=== PATIENT | female | born 1970 | race Caucasian/White ===

== ENCOUNTER 2021-04-19 17:24 | Inpatient (IN) ==
[2021-04-19] MEDS ORDERED: 0.9 % SODIUM CHLORIDE 1,000 ML IV ONE (18:19)
[2021-04-19] MEDS ORDERED: METOCLOPRAMIDE 10 MG/2 ML VIAL IV ONE (18:19)
[2021-04-19 18:39] LABS: POC Calcium, Ionized 1.16 mmEq/L (1.16-1.32); POC Creatinine 0.7 mg/dL (0.6-1.2); POC Potassium 4.7 mEql/L (3.3-5.1)
[2021-04-19 19:16] LABS: Basophils # (Auto) 0 K/mcL (0.00-0.30); Basophils % (Auto) 0 % (0.0-2.0); Eosinophils # (Auto) 0 K/mcL (0.00-0.70); Eosinophils % (Auto) 0 % (0.0-7.0); Hematocrit 39.4 % (34.1-44.9); Hemoglobin 12.9 g/dL (11.2-15.7); Lymphocytes # (Auto) 0.97 K/mcL (1.50-4.80); Lymphocytes % (Auto) 29.6 % (15.5-49.0); Mean Cell Volume 91.8 fL (80.0-100.0); Mean Corpuscular HGB Conc 32.7 g/dL (31.0-36.0); Mean Platelet Volume 9.7 fL (7.4-10.4); Monocytes # (Auto) 0.26 K/mcL (0.10-0.90); Monocytes % (Auto) 7.9 % (1.0-12.0); Neutrophils % (Auto) 62.5 % (38.0-78.0); Platelet Count 219 K/mcL (140-440); RBC 4.29 M/mcL (3.59-5.38); Red Cell Distribution Width 13.5 % (11.5-14.5); WBC 3.3 K/mcL (4.5-11.0)
--- NOTE | 2021-04-19 19:20 | XRay Report ---
INDICATION: poss DKA, RLL rales, covid + TECHNIQUE: AP portable upright chest x-ray COMPARISON: Previous examination dated 08/30/2017 FINDINGS: Lungs:Mild left basilar pulmonary parenchymal infiltrate consistent with pneumonia. Clinical correlation and follow-up radiographs recommended Heart, vascular:No significant cardiomegaly. Pulmonary vascularity is normal. No pulmonary edema or pulmonary congestion Mediastinum, millie:No mediastinal widening. No hilar mass Pleura:No pleural fluid. No pleural-based mass or calcification Skeletal:Negative. IMPRESSION: Mild left basilar parenchymal infiltrate consistent with pneumonia Interpreted and Authenticated by: Ethan Wilson 04/19/21
[2021-04-19 19:38] LABS: ALT/SGPT 303 U/L (<40); AST/SGOT 57 U/L (<32); Albumin 4.3 gm/dL (3.2-5.2); Albumin/Globulin Ratio 1.2 (1.0-2.3); Alkaline Phosphatase 403 U/L (39-117); Bilirubin,Total < 0.2 mg/dL (0.1-1.0); Blood Urea Nitrogen 15 mg/dL (6-20); Calcium 8.9 mg/dL (8.6-10.4); Carbon Dioxide 10 mmol/L (22-30); Chloride 95 mmol/L (96-108); Globulin 3.5 gm/dL (2.2-3.7); Glomerular Filtration Rate 58; Glucose 370 mg/dL (70-105)
[2021-04-19] MEDS ORDERED: INSULIN REGULAR, HUMAN 50 UNIT in 0.9 % SODIUM CHLORIDE 99.5 ML IV SCH ×2 (19:45→23:05)
[2021-04-19] MEDS ORDERED: LACTATED RINGERS 1,000 ML IV ONE ×3 (19:48→23:05)
--- NOTE | 2021-04-19 19:49 | Emergency Department Note ---
HPI <Kiran Sorenson PA-C - Last Filed: 04/19/21 20:53> General Chief complaint: Blood Sugar Problem Stated complaint: Covid, possible DKA Time Seen by Provider: 04/19/21 17:45 Source: patient Mode of arrival: ambulatory Limitations: no limitations History of Present Illness HPI Narrative: Narrative: 51-year-old female presents emergency department with concerns of possible DKA, nausea, vomiting and body aches. She was diagnosed with COVID-19 and was doing okay but then about 4 or so days ago she started to get worsening nausea and vomiting and body aches. Her blood sugars were greater than 500. She uses an insulin pump. She denies chest pain, shortness of breath, abdominal pain, hemoptysis, hematemesis, black or bloody stools. Related Data Home Medications Medication Instructions Recorded Confirmed acyclovir 400 mg tablet 400 mg PO TID PRN tab 07/09/16 04/20/21 blood sugar diagnostic (OneTouch 07/09/16 12/17/20 Verio test strips) diclofenac sodium 75 mg 75 mg PO BID 07/09/16 04/20/21 tablet,delayed release fexofenadine [May Allergy] 180 mg PO QAM 07/09/16 04/20/21 hydrocodone 5 mg-acetaminophen 325 1 tab PO Q8H PRN 07/09/16 04/20/21 mg tablet infusion set for insulin pump 1 unit MISCELLANE QAM 07/09/16 04/20/21 [t:30 Infusion Set] insulin lispro 100 unit/mL See Rx Instructions .ROUTE 07/09/16 04/20/21 subcutaneous solution (Humalog .COMPLEX ml U-100 Insulin) lorazepam 0.5 mg tablet 0.5 mg PO BID PRN tab 07/09/16 04/20/21 metaxalone 800 mg tablet 800 mg PO QDAY PRN tab 07/09/16 04/20/21 pantoprazole 40 mg tablet,delayed 40 mg PO BID tab 07/09/16 04/20/21 release subcutaneous insulin pump (t:slim 07/09/16 12/17/20 Insulin Delivery System) ketamine 100 mg/10 mL (10 mg/mL) 100 mg IM WEEKLY 10/05/18 04/20/21 in sodium chlor,iso-osm inj syringe famotidine 20 mg tablet 20 mg PO QHS 09/14/20 11/14/21 duloxetine 30 mg capsule,delayed 30 mg PO QDAY 02/20/21 04/20/21 release Previous Rx's Medication Instructions Recorded albuterol sulfate 90 mcg/actuation 2 puff INHALATION Q4H PRN #6.7 g 01/16/21 aerosol inhaler Allergies Allergy/AdvReac Type Severity Reaction Status Date / Time mold Allergy Unknown Unknown Verified 04/20/21 01:48 prednisone AdvReac Severe DKA Verified 04/20/21 01:48 cardamine AdvReac Mild Unknown Uncoded 04/20/21 01:50 Review of Systems <Kiran Sorenson PA-C - Last Filed: 04/19/21 20:53> ROS ROS Narrative: Narrative: All systems ED: reviewed and negative except as stated. 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) Dizziness (Chronic) Muscle pain (Chronic) Shortness of breath (Chronic) Fever and chills (Chronic) Chest heaviness (Chronic) Plantar fasciitis, bilateral (Chronic) Throbbing pain (Chronic) Foot pain (Chronic) Head pain (Chronic) Gastroparesis (Chronic) Fibromyalgia (Chronic) Hyperlipidemia (Chronic) Hypertension (Chronic) Influenza B (Chronic) Diabetes (Chronic) Vulvovaginal gland abscess (Chronic) Acute viral syndrome (Chronic) Type I diabetes mellitus (Chronic) Nausea & vomiting (Chronic) Acute dehydration (Chronic) Chronic pain (Chronic) Encounter for long-term (current) use of high-risk medication (Chronic) Inflammatory arthropathy (Chronic) Hyperesthesia (Chronic) History of mammogram (Chronic 03/10/16) Back pain (Chronic) Dermatitis, contact (Chronic) Vaginal itching (Chronic) Migraine (Chronic) Paresthesias (Chronic) Epilepsy (Chronic) DIANA positive (Chronic) Pain in joint, multiple sites (Chronic) Shoulder pain, bilateral (Chronic) Enlarged glands (Chronic) Pelvic pain (Chronic) Dermatofibroma (Chronic) Lentigo (Chronic) Other benign neoplasm of skin of trunk (Chronic) Seborrheic keratosis (Chronic) Neoplasm of unspecified behavior of bone, soft tissue, and skin (Chronic) Nail anomaly (Chronic) Anxiety disorder (Chronic) Diabetic peripheral neuropathy (Chronic) Insomnia (Chronic) Unspecified contact dermatitis due to other chemical products (Chronic) High risk medication use (Chronic) Dry skin (Chronic) Right hip pain (Chronic) Right knee pain (Chronic) History of chronic back pain (Chronic) Dysphagia (Chronic) Diabetes mellitus type 1, uncontrolled (Chronic) Dermatitis (Chronic) GERD (gastroesophageal reflux disease) (Chronic) Acne vulgaris (Chronic) Cervicalgia (Chronic) Tension headache (Chronic) Seizure disorder (Chronic) Abnormal liver function tests (Chronic) Autonomic neuropathy (Chronic) Dysesthesia (Chronic) Arthralgia (Chronic) Diabetes mellitus type I (Chronic) Yeast infection (Chronic) UTI (urinary tract infection) (Chronic) Fatigue (Chronic) Abdominal pain (Chronic) Medical History Abdominal pain Abnormal liver function tests Acne vulgaris Acute dehydration Acute viral syndrome DIANA positive Anxiety disorder Arthralgia Autonomic neuropathy Back pain Cervicalgia Chest heaviness lungs Chronic pain Dermatitis scalp Dermatitis, contact Dermatofibroma Diabetes Diabetes mellitus type 1, uncontrolled Diabetes mellitus type I Diabetic peripheral neuropathy Dizziness Dry skin Dysesthesia Dysphagia Encounter for long-term (current) use of high-risk medication Enlarged glands Epilepsy Fatigue Fever and chills Fibromyalgia Foot pain Frequent headaches Gastroparesis GERD (gastroesophageal reflux disease) Grand mal seizure Head pain High risk medication use History of chronic back pain History of mammogram (03/10/16) Hyperesthesia Hyperlipidemia Hypertension Inflammatory arthropathy Influenza B Insomnia Lentigo Migraine Muscle pain Nail anomaly Nausea & vomiting Neoplasm of unspecified behavior of bone, soft tissue, and skin Other benign neoplasm of skin of trunk Pain in joint, multiple sites Paresthesias Pelvic pain Plantar fasciitis, bilateral Right hip pain Right knee pain Seborrheic keratosis Seizure disorder Shortness of breath Shoulder pain, bilateral Tension headache Throbbing pain w/stiffness Type I diabetes mellitus Unspecified contact dermatitis due to other chemical products UTI (urinary tract infection) Vaginal itching Vulvovaginal gland abscess Yeast infection Surgical History History of History of cholecystectomy History of hysterectomy for menorrhagia (still has ovaries) History of shoulder surgery bilateral History of surgery eyelid-upper eyelid lift, bilateral History of tonsillectomy History of tubal ligation Status post tendon repair Right elbow 2007 Family History Brother Renal disease Renal failure Family/Other Breast cancer Hypertension Heart disease Mother Arthritis Social History Smoking Status: Never smoker Alcohol Intake Frequency: a few times a month Substance Use: does not use Exam <Kiran Sorenson PA-C - Last Filed: 04/19/21 20:53> Narrative Narrative: Narrative: General Limitations: no limitations General appearance: Present in no apparent distress Head Head: Present atraumatic and normocephalic Eye Eye: Present EOMI ENT ENT: Present mucous membranes moist Respiratory Respiratory: Present other (Mild by basilar Rales) Cardiovascular Cardiovascular: Present normal rhythm, tachycardia and normal heart sounds Adbominal Abdominal: Present other (Abdomen is soft, nontender, no rebound tenderness no guarding.) Back Back: Present other (Negative CVA tenderness bilaterally.) Psychiatric Psychiatric: Present normal affect and normal mood Skin Skin: Present warm (WNL), dry and normal color Course <Kiran Sorenson PA-C - Last Filed: 04/19/21 20:53> Vital Signs Vital signs: Vital Signs Temperature 37.1 C 04/19/21 17:25 Pulse Rate 111 H 04/19/21 17:25 Respiratory Rate 16 04/19/21 17:25 Blood Pressure 151/133 04/19/21 17:25 Pulse Oximetry (%) 99 04/19/21 17:25 Temperature 36.6 C 04/20/21 00:02 Pulse Rate 97 H 04/20/21 00:02 Respiratory Rate 21 04/20/21 00:02 Blood Pressure 120/72 04/20/21 00:02 Pulse Oximetry (%) 99 04/20/21 00:02 MDM <Kiran Sorenson PA-C - Last Filed: 04/19/21 20:53> MDM Narrative Medical decision making narrative: Narrative: Labs reviewed and patient's 0.2 low bicarb beta hydroxybutyrate 7.89 ketones in urine. There is a small basilar infiltrate consistent with pneumonia. With a normal white count with no left shift so is most likely Covid pneumonia. Insulin drip started initially 1 L of normal saline ordered now another liter of lactated Ringer's. Critical care documentation: 30 minutes time spent interviewing and examining patient, ordering labs and imaging, reviewing and interpreting labs and imaging, reevaluating patient, determining treatment plan and Consulting specialist in the care of this patient. I spoke with the hospitalist who agreed to admit the patient to the ICU. This patient was seen in conjunction with the ER physician. Please see his addendum. Lab Data Result diagrams: 04/19/21 18:28 04/19/21 23:45 Labs: Lab Results 04/19/21 04/19/21 04/19/21 Range/Units 18:28 18:28 18:28 WBC 3.3 L (4.5-11.0) K/mcL RBC 4.29 (3.59-5.38) M/mcL Hgb 12.9 (11.2-15.7) g/dL Hct 39.4 (34.1-44.9) % POC Hct 43 (36-48) % MCV 91.8 (80.0-100.0) fL MCH 30.1 (26.0-34.0) pg MCHC 32.7 (31.0-36.0) g/dL RDW 13.5 (11.5-14.5) % Plt Count 219 (140-440) K/mcL MPV 9.7 (7.4-10.4) fL Neut % (Auto) 62.5 (38.0-78.0) % Lymph % (Auto) 29.6 (15.5-49.0) % [place] % (Auto) 7.9 (1.0-12.0) % Eos % (Auto) 0 (0.0-7.0) % Baso % (Auto) 0 (0.0-2.0) % Lymph # (Auto) 0.97 L (1.50-4.80) K/mcL [place] # (Auto) 0.26 (0.10-0.90) K/mcL Eos # (Auto) 0 (0.00-0.70) K/mcL Baso # (Auto) 0 (0.00-0.30) K/mcL Absolute Neutrophils 2.05 (1.80-8.00) K/mcL POC Sodium 134 (133-145) mEq/L Sodium 132 L (133-145) mmol/L POC Potassium 4.7 (3.3-5.1) mEql/L Potassium 4.8 (3.3-5.1) mmol/L POC Chloride 104 (96-108) mEq/L Chloride 95 L (96-108) mmol/L Carbon Dioxide 10 L* (22-30) mmol/L POC Total CO2 13 L (22-30) mmol/L Anion Gap 27.0 H (8.0-16.0) POC BUN 18 (6-20) mg/dL BUN 15 (6-20) mg/dL Creatinine 1.1 (0.6-1.1) mg/dL POC Creatinine 0.7 (0.6-1.2) mg/dL GFR Calculation 58 Glucose 370 H (70-105) mg/dL POC Glucose 376 H (70-105) mg/dL Calcium 8.9 (8.6-10.4) mg/dL POC WB Ioniz Calcium 1.16 (1.16-1.32) mmEq/L Total Bilirubin < 0.2 (0.1-1.0) mg/dL AST 57 H (<32) U/L ALT 303 H (<40) U/L Alkaline Phosphatase 403 H (39-117) U/L Total Protein 7.8 (5.9-8.4) gm/dL Albumin 4.3 (3.2-5.2) gm/dL Globulin 3.5 (2.2-3.7) gm/dL Albumin/Globulin Ratio 1.2 (1.0-2.3) Beta-Hydroxybutyrate 7.89 H (<0.27) mmol/L Discharge Plan Patient/Caregiver Discharge Instructions Pt seen by PIPING DESIGNER/PA only: No Clinical Impression: DKA, type 1, COVID-19 Patient Disposition: Xfer As Inpt ([facility]) Condition: Serious Discharge Date/Time: 04/19/21 22:35
[2021-04-19 19:52] LABS: Beta Hydroxybutyrate 7.89 mmol/L (<0.27)
[2021-04-19] MEDS ORDERED: LACTATED RINGERS 1,000 ML IV SCH (20:00)
--- NOTE | 2021-04-19 20:05 | Emergency Department Note ---
Course Vital Signs Vital signs: Vital Signs Temperature 37.1 C 04/19/21 17:25 Pulse Rate 111 H 04/19/21 17:25 Respiratory Rate 16 04/19/21 17:25 Blood Pressure 151/133 04/19/21 17:25 Pulse Oximetry (%) 99 04/19/21 17:25 Temperature 36.6 C 04/20/21 00:02 Pulse Rate 97 H 04/20/21 00:02 Respiratory Rate 21 04/20/21 00:02 Blood Pressure 120/72 04/20/21 00:02 Pulse Oximetry (%) 99 04/20/21 00:02 [facility] MDM Narrative Medical decision making narrative: Narrative: This was a patient who presented to the ED with known COVID-19 for about 1 week as well as dehydration nausea vomiting and she is a type I diabetic with history of DKA and she feels like she is starting to go into DKA. No chest pain no abdominal pain no urinary symptoms. Initially evaluated by KEN was given IV fluids, laboratory results are consistent with acute DKA, On my evaluation she is tachycardic with dry mucous membranes, otherwise nondistressed overall nontoxic, heart lungs are clear and regular abdomen soft nontender nondistended. She is hyperglycemic with a anion gap metabolic acidosis, her pH is 7.2, potassium is normal 4.7. Urinalysis shows ketones but no infection, chest x-ray shows possible lower lung pneumonia however I suspect this is most consistent with her known COVID-19, do not believe antibiotics indicated at this time. Was initially given a liter of NS, is given a further second liter LR and started on LR infusion as well as DKA protocol/insulin infusion. We are awaiting admission at this time to see whether she can be accepted here or if she will require transfer due to bed availability. And additionally from a COVID-19 standpoint fortunately she is not hypoxic whatsoever sats 98 to 100%, no indication for steroids, remdesivir at this time. 2100: Patient is accepted by the hospitalist here 2130: Repeat Accu-Chek around 200, will slow her insulin down to 5 units, will start her on D5 LR with KCl at 150 cc. Patient being transferred to the ICU at this time Critical Care Time Total CriticalCare time was at least 35 minutes, excluding separately reportable procedures. There was a high probability of clinically significant/life threatening deterioration in the patient's condition which required my urgent intervention. Lab Data Result diagrams: 04/19/21 18:28 04/19/21 23:45 Labs: Lab Results 04/19/21 04/19/21 04/19/21 Range/Units 18:28 18:28 18:28 WBC 3.3 L (4.5-11.0) K/mcL RBC 4.29 (3.59-5.38) M/mcL Hgb 12.9 (11.2-15.7) g/dL Hct 39.4 (34.1-44.9) % POC Hct 43 (36-48) % MCV 91.8 (80.0-100.0) fL MCH 30.1 (26.0-34.0) pg MCHC 32.7 (31.0-36.0) g/dL RDW 13.5 (11.5-14.5) % Plt Count 219 (140-440) K/mcL MPV 9.7 (7.4-10.4) fL Neut % (Auto) 62.5 (38.0-78.0) % Lymph % (Auto) 29.6 (15.5-49.0) % [place] % (Auto) 7.9 (1.0-12.0) % Eos % (Auto) 0 (0.0-7.0) % Baso % (Auto) 0 (0.0-2.0) % Lymph # (Auto) 0.97 L (1.50-4.80) K/mcL [place] # (Auto) 0.26 (0.10-0.90) K/mcL Eos # (Auto) 0 (0.00-0.70) K/mcL Baso # (Auto) 0 (0.00-0.30) K/mcL Absolute Neutrophils 2.05 (1.80-8.00) K/mcL POC Sodium 134 (133-145) mEq/L Sodium 132 L (133-145) mmol/L POC Potassium 4.7 (3.3-5.1) mEql/L Potassium 4.8 (3.3-5.1) mmol/L POC Chloride 104 (96-108) mEq/L Chloride 95 L (96-108) mmol/L Carbon Dioxide 10 L* (22-30) mmol/L POC Total CO2 13 L (22-30) mmol/L Anion Gap 27.0 H (8.0-16.0) POC BUN 18 (6-20) mg/dL BUN 15 (6-20) mg/dL Creatinine 1.1 (0.6-1.1) mg/dL POC Creatinine 0.7 (0.6-1.2) mg/dL GFR Calculation 58 Glucose 370 H (70-105) mg/dL POC Glucose 376 H (70-105) mg/dL Calcium 8.9 (8.6-10.4) mg/dL POC WB Ioniz Calcium 1.16 (1.16-1.32) mmEq/L Total Bilirubin < 0.2 (0.1-1.0) mg/dL AST 57 H (<32) U/L ALT 303 H (<40) U/L Alkaline Phosphatase 403 H (39-117) U/L Total Protein 7.8 (5.9-8.4) gm/dL Albumin 4.3 (3.2-5.2) gm/dL Globulin 3.5 (2.2-3.7) gm/dL Albumin/Globulin Ratio 1.2 (1.0-2.3) Beta-Hydroxybutyrate 7.89 H (<0.27) mmol/L Discharge Plan Patient/Caregiver Discharge Instructions Pt seen by COMPLIANCE REVIEW SPECIALIST/PA only: No Clinical Impression: DKA, type 1, COVID-19 Patient Disposition: Xfer As Inpt ([facility]) Condition: Serious Discharge Date/Time: 04/19/21 22:35
--- NOTE | 2021-04-19 21:31 | Internal Med History&Physical ---
HPI History of Present Illness Patient information: Note initiated : 04/19/21 at 9:22 pm Service Date, if different from initiated Date: [] Patient: Debby King 51 y/o F admitted on for Covid, possible DKA. Chief Complaint: [DKA] History of present illness: Ms. King is a 51 year old F history of seizure and type 1 diabetes mellitus, presenting with 3-day history of general body weakness, nausea, decreased oral intake, muscle and bone aches. 1 week ago she started to have symptoms of runny nose and mild shortness of breath. She self test herself for Covid pneumonia and she was tested +6 days ago. 3 days ago, she started to experience general body weakness, nausea, decreased oral intake, muscle and bone aches. She used an insulin pump with glucose monitor and in the past 3 days, her blood glucose levels was elevated from 300-500s. Due to her symptoms, he came to our ED for further evaluations this evening. Vital signs significant for tachycardia with heart rate up in the 110s. Labs significant for blood glucose of 370, serum bicarb of 10, and serum anion gap elevated to 27. As stated before, she was tested positive for Covid 6 days ago. Chest x-ray showing mild left basilar parenchymal infiltrate consistent with pneumonia. Constitutional Constitutional: Present fatigue and weakness; Absent chills, excessive sweating or fever(s) Additional comments: decreased oral intake EENT Eyes: Absent blurry vision, change in vision, loss of vision or other visual disturbances Ears: Absent decreased hearing or tinnitus Nose, mouth and throat: Absent abnormal hearing, dry mouth, headache(s), nasal congestion or sore throat Cardiovascular Cardiovascular: Absent chest pain, chest pain at rest, edema, irregular heart rhythm or palpatations Respiratory Respiratory: Absent cough, dyspnea or wheezing Gastrointestinal Gastrointestinal: Present nausea; Absent abdominal pain, constipation, diarrhea or vomiting Musculoskeletal Musculoskeletal: Present muscle cramps; Absent back pain, deformity, limited range of motion, muscle weakness or numbness Integumentary Integumentary: Absent lesions, rash or wounds Neurological Neurological: Absent focal weakness, headache(s) or numbness Psychiatric Psychiatric: Absent anxiety, depression or hallucinations Endocrine Endocrine: Present fatigue PFSH PFSH All Active Problems (Updated 04/19/21 @ 21:26 by Valentino Pardo MD) Asymptomatic COVID-19 virus infection (Acute) Viral URI with cough (Acute) DKA, type 1 (Acute) COVID-19 (Acute) Frequent headaches (Chronic) 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) Dizziness (Chronic) Muscle pain (Chronic) Shortness of breath (Chronic) Fever and chills (Chronic) Chest heaviness (Chronic) Plantar fasciitis, bilateral (Chronic) Throbbing pain (Chronic) Foot pain (Chronic) Head pain (Chronic) Gastroparesis (Chronic) Fibromyalgia (Chronic) Hyperlipidemia (Chronic) Hypertension (Chronic) Influenza B (Chronic) Diabetes (Chronic) Vulvovaginal gland abscess (Chronic) Acute viral syndrome (Chronic) Type I diabetes mellitus (Chronic) Nausea & vomiting (Chronic) Acute dehydration (Chronic) Chronic pain (Chronic) Encounter for long-term (current) use of high-risk medication (Chronic) Inflammatory arthropathy (Chronic) Hyperesthesia (Chronic) History of mammogram (Chronic 03/10/16) Back pain (Chronic) Dermatitis, contact (Chronic) Vaginal itching (Chronic) Migraine (Chronic) Paresthesias (Chronic) Epilepsy (Chronic) DIANA positive (Chronic) Pain in joint, multiple sites (Chronic) Shoulder pain, bilateral (Chronic) Enlarged glands (Chronic) Pelvic pain (Chronic) Dermatofibroma (Chronic) Lentigo (Chronic) Other benign neoplasm of skin of trunk (Chronic) Seborrheic keratosis (Chronic) Neoplasm of unspecified behavior of bone, soft tissue, and skin (Chronic) Nail anomaly (Chronic) Anxiety disorder (Chronic) Diabetic peripheral neuropathy (Chronic) Insomnia (Chronic) Unspecified contact dermatitis due to other chemical products (Chronic) High risk medication use (Chronic) Dry skin (Chronic) Right hip pain (Chronic) Right knee pain (Chronic) History of chronic back pain (Chronic) Dysphagia (Chronic) Diabetes mellitus type 1, uncontrolled (Chronic) Dermatitis (Chronic) GERD (gastroesophageal reflux disease) (Chronic) Acne vulgaris (Chronic) Cervicalgia (Chronic) Tension headache (Chronic) Seizure disorder (Chronic) Abnormal liver function tests (Chronic) Autonomic neuropathy (Chronic) Dysesthesia (Chronic) Arthralgia (Chronic) Diabetes mellitus type I (Chronic) Yeast infection (Chronic) UTI (urinary tract infection) (Chronic) Fatigue (Chronic) Abdominal pain (Chronic) Medical History Abdominal pain Abnormal liver function tests Acne vulgaris Acute dehydration Acute viral syndrome DIANA positive Anxiety disorder Arthralgia Autonomic neuropathy Back pain Cervicalgia Chest heaviness lungs Chronic pain Dermatitis scalp Dermatitis, contact Dermatofibroma Diabetes Diabetes mellitus type 1, uncontrolled Diabetes mellitus type I Diabetic peripheral neuropathy Dizziness Dry skin Dysesthesia Dysphagia Encounter for long-term (current) use of high-risk medication Enlarged glands Epilepsy Fatigue Fever and chills Fibromyalgia Foot pain Frequent headaches Gastroparesis GERD (gastroesophageal reflux disease) Grand mal seizure Head pain High risk medication use History of chronic back pain History of mammogram (03/10/16) Hyperesthesia Hyperlipidemia Hypertension Inflammatory arthropathy Influenza B Insomnia Lentigo Migraine Muscle pain Nail anomaly Nausea & vomiting Neoplasm of unspecified behavior of bone, soft tissue, and skin Other benign neoplasm of skin of trunk Pain in joint, multiple sites Paresthesias Pelvic pain Plantar fasciitis, bilateral Right hip pain Right knee pain Seborrheic keratosis Seizure disorder Shortness of breath Shoulder pain, bilateral Tension headache Throbbing pain w/stiffness Type I diabetes mellitus Unspecified contact dermatitis due to other chemical products UTI (urinary tract infection) Vaginal itching Vulvovaginal gland abscess Yeast infection Surgical History History of History of cholecystectomy History of hysterectomy for menorrhagia (still has ovaries) History of shoulder surgery bilateral History of surgery eyelid-upper eyelid lift, bilateral History of tonsillectomy History of tubal ligation Status post tendon repair Right elbow 2006 Family History Brother Renal disease Renal failure Family/Other Breast cancer Hypertension Heart disease Mother Arthritis Social History (Updated 12/06/20 @ 06:38 by Esmer Xinog) marital status: education level: high school occupational status: 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 smoking status: Never smoker alcohol intake frequency: a few times a month substance use type: does not use MEDS/ALLERGIES Home Medications and Allergies Home Medications Medication Instructions Recorded Confirmed Type acyclovir 400 mg tablet 400 mg PO TID PRN tab 07/09/16 02/20/21 History blood sugar diagnostic (OneTouch 07/09/16 12/17/20 History Verio test strips) diclofenac sodium 75 mg 75 mg PO BID 07/09/16 02/20/21 History tablet,delayed release fexofenadine [May Allergy] 180 mg PO BID 07/09/16 02/20/21 History hydrocodone 5 mg-acetaminophen 325 1 tab PO Q8H PRN 07/09/16 02/20/21 History mg tablet infusion set for insulin pump MISCELLANE 07/09/16 12/17/20 History [t:30 Infusion Set] insulin lispro 100 unit/mL See Rx Instructions CONTINUOUS 07/09/16 12/17/20 History subcutaneous solution (Humalog SUBCUTANEOUS INFUSION ml U-100 Insulin) lorazepam 0.5 mg tablet 0.25 mg PO BID PRN tab 07/09/16 02/20/21 History metaxalone 800 mg tablet 800 mg PO QDAY PRN tab 07/09/16 02/20/21 History pantoprazole 40 mg tablet,delayed 40 mg PO BID tab 07/09/16 02/20/21 History release subcutaneous insulin pump (t:slim 07/09/16 12/17/20 History Insulin Delivery System) ketamine 100 mg/10 mL (10 mg/mL) 100 mg IM WEEKLY 10/05/18 02/20/21 History in sodium chlor,iso-osm inj syringe famotidine 20 mg tablet 20 mg PO QDAY 02/19/20 02/20/21 History ondansetron HCl 4 mg tablet 4 mg PO Q8H PRN #30 tab 10/12/20 02/20/21 Rx (Zofran) albuterol sulfate 90 mcg/actuation 2 puff INHALATION Q4H PRN #6.7 g 01/16/21 02/20/21 Rx aerosol inhaler duloxetine 30 mg capsule,delayed 30 mg PO QDAY 02/20/21 02/20/21 History release Allergies Allergy/AdvReac Type Severity Reaction Status Date / Time mold Allergy Unknown Unknown Verified 04/19/21 17:25 prednisone AdvReac Severe DKA Verified 04/19/21 17:25 EXAM Constitutional Vitals: Temp Pulse Resp BP Pulse Ox 37.1 C 105 H 16 127/76 98 04/19/21 17:25 04/19/21 19:46 04/19/21 17:25 04/19/21 18:35 04/19/21 19:46 General appearance: cooperative, disheveled and mild distress Head Head exam: Present atraumatic and normocephalic Eye Eye exam: Present EOMI and PERRL ENT ENT exam: Present mucous membranes moist, normal exam and normal external ear exam Neck Neck exam: Present normal inspection; Absent lymphadenopathy, tenderness or thyromegaly Respiratory Respiratory exam: Absent accessory muscle use, respiratory distress or wheezes Cardiovascular Cardiovascular exam: Present tachycardia; Absent JVD GI/Abdominal GI/Abdominal exam: Present normal bowel sounds and soft; Absent organomegaly or tenderness Extremities Exam Extremities exam: Present full ROM, normal capillary refill and normal inspection; Absent tenderness Neurological Exam Neurological exam: Present alert, CN II-XII intact and oriented X3; Absent motor sensory deficit Psychiatric Psychiatric exam: Present normal affect and normal mood; Absent anxious or depressed Skin Skin exam: Present dry and intact DATA Data Completed and Pending Labs: Labs from last 24 hours 04/19/21 04/19/21 04/19/21 18:28 18:28 18:28 WBC 3.3 L RBC 4.29 Hgb 12.9 Hct 39.4 POC Hct 43 MCV 91.8 MCH 30.1 MCHC 32.7 RDW 13.5 Plt Count 219 MPV 9.7 Neut % (Auto) 62.5 Lymph % (Auto) 29.6 Davison % (Auto) 7.9 Eos % (Auto) 0 Baso % (Auto) 0 Lymph # (Auto) 0.97 L Davison # (Auto) 0.26 Eos # (Auto) 0 Baso # (Auto) 0 Absolute Neutrophils 2.05 POC Sodium 134 Sodium 132 L POC Potassium 4.7 Potassium 4.8 POC Chloride 104 Chloride 95 L Carbon Dioxide 10 L* POC Total CO2 13 L Anion Gap 27.0 H POC BUN 18 BUN 15 Creatinine 1.1 POC Creatinine 0.7 GFR Calculation 58 Glucose 370 H POC Glucose 376 H Calcium 8.9 POC WB Ioniz Calcium 1.16 Total Bilirubin < 0.2 AST 57 H ALT 303 H Alkaline Phosphatase 403 H Total Protein 7.8 Albumin 4.3 Globulin 3.5 Albumin/Globulin Ratio 1.2 Beta-Hydroxybutyrate 7.89 H A/P Assessment and plan (1) DKA, type 1: Status: Acute (2) Asymptomatic COVID-19 virus infection: Status: Acute (3) Epilepsy: Status: Chronic (4) GERD (gastroesophageal reflux disease): Status: Chronic Narrative A/P Narrative: Assessment and plan: 1. Type I DKA: Admit to inpatient ICU with telemetry Hemoglobin A1c N.p.o. Status post 1 L LR bolus given in the ED, to be followed by another liters of LR bolus IV fluid therapy as followin/2 saline with KCl 20 M EQ @250cc/hr to be given if anion gap is elevated (>14) and blood glucose >=200 D5 1/2 saline with KCl 20 M EQ @250cc/hr to be given if anion gap is elevated (>14) and blood glucose <200 Insulin drip according to DKA protocol Accu-Chek every 1 hour BMP every 6 hours to trend serum bicarb as well as anion gap When anion gap is closed meaning less than or equal to 14, metabolic acidosis resolved, then we can start transition of insulin therapy from insulin drip to subcutaneous insulin or in this case will be insulin pump We will disable the insulin pen while the patient is receiving insulin drip and will reactivate the insulin pump for 2 hours bridge before we stop the insulin drip and IV fluid When insulin drip and IV fluid are discontinued, we can then start feeding the 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 Zofran IV as needed nausea vomiting Reglan IV as needed nausea vomiting #2 asymptomatic Covid pneumonia: Patient is tolerating room air with oxygen saturation in the upper 90s, so no treatment for Covid such as remdesivir or dexamethasone is indicated at the moment Isolation protocol with airborne and contact isolation Continue to monitor for patient's oxygen saturations and would initiate Covid specific treatment when patient started to show signs and symptoms of Covid pneumonia #3 history of seizures: Continue Vimpat per home regimen #4 history of GERD: Continue oral PPI from home regimen GI prophylaxis: Continue oral PPI from home regimen DVT prophylaxis: Lovenox CODE STATUS: Full code Prognosis: Guarded Dispositions: Inpatient ICU Critical care time: 1 hour Time Spent With Patient Time: Total time spent is greater than 50% in coordination of care (as documented) at patient's floor/unit and/or counseling patient: Total time spent with greater than 50% in coordination of care (as documented) at patient's floor/unit and/or counseling patient:: Greater than 35 minutes
[2021-04-19] MEDS ORDERED: DEXTROSE 5%-LR W/20MEQ KCL 1,000 ML IV SCH (21:45)
[2021-04-19] MEDS ORDERED: METAXALONE 800 MG TABLET PO PRN (23:05)
[2021-04-19] MEDS ORDERED: LORazepam 2 MG/ML VIAL IV PRN (23:05)
[2021-04-19] MEDS ORDERED: IBUPROFEN 600 MG TABLET PO PRN (23:05)
[2021-04-19] MEDS ORDERED: IPRATROPIUM/ALBUTEROL 3 ML AMPUL.NEB NEB PRN (23:05)
[2021-04-19] MEDS ORDERED: ONDANSETRON 4 MG/2 ML VIAL IV PRN (23:05)
[2021-04-19] MEDS ORDERED: ACETAMINOPHEN 325 MG TABLET PO PRN (23:05)
[2021-04-19] MEDS ORDERED: LORazepam 0.5 MG TABLET PO PRN (23:05)
[2021-04-19] MEDS ORDERED: ALBUTEROL SULFATE 200 PUFF INHALER INH PRN (23:05)
[2021-04-19] MEDS ORDERED: DEXTROSE 5%-1/2NS 1,000 ML IV SCH (23:05)
[2021-04-19] MEDS: 0.45 % SODIUM CHLORIDE 1,000 ML IV SCH (23:22)
[2021-04-19] MEDS: DEXTROSE 5%-1/2NS W/20MEQ KCL 1,000 ML IV SCH (23:32)
[2021-04-19] MEDS: 0.9 % SODIUM CHLORIDE 10 ML SYRINGE IV SCH (23:32)
[2021-04-20 00:16] LABS: ABG Methemoglobin 0.3 % (0.4-1.5); Total Hemoglobin 11.2 gm/Dl (12.0-15.0); VBG Base Excess -6 (-2-2); VBG HCO3 19.2 mmol/L (24.0-28.0); VBG Oxygen Saturation 84.3 % (40.0-70.0); VBG PCO2 36.9 mmHg (41.0-51.0); VBG PH 7.34 U (7.32-7.42); VBG PO2 54.5 mmHg (25.0-40.0); VBG Total CO2 20.4 mmol/L (25.0-29.0)
[2021-04-20 00:26] LABS: Estimated Average Glucose(eAG) 301 mg/dL; Hemoglobin A1C 12.1 % Hgb (4.0-6.0)
[2021-04-20 00:31] LABS: Appearance,Urine CLEAR (Clear); Bilirubin,Urine Negative (Negative); Color,Urine STRAW; Culture Indicated,Urine No; Glucose,Urine (UA) >=500 mg/dL (Negative); Ketones,Urine 80 mg/dL (Negative); Leukocyte Esterase,Urine Negative /uL (Negative); Mucus,Urine FEW /hpf; Nitrate,Urine Negative (Negative); Protein,Urine Negative (Negative); Specific Gravity,Urine 1.017 (1.000-1.035); Urine Blood Negative (Negative); Urine RBC 0 /hpf (0-3); Urine Squamous Epithelial Cell < 1 /hpf (0-4); Urine WBC 0 /hpf (0-4); Urobilinogen,Urine Negative
[2021-04-20] MEDS: METOCLOPRAMIDE 10 MG/2 ML VIAL IV SCH ×3 (00:46→12:13)
[2021-04-20 00:48] LABS: Blood Urea Nitrogen 10 mg/dL (6-20); Calcium 8.2 mg/dL (8.6-10.4); Carbon Dioxide 17 mmol/L (22-30); Chloride 102 mmol/L (96-108); Glomerular Filtration Rate 86; Glucose 157 mg/dL (70-105)
[2021-04-20 00:49] LABS: ALT/SGPT 246 U/L (<40); AST/SGOT 46 U/L (<32); Albumin 3.7 gm/dL (3.2-5.2); Albumin/Globulin Ratio 1.2 (1.0-2.3); Alkaline Phosphatase 323 U/L (39-117); Bilirubin,Direct < 0.2 mg/dL (0-0.3); Bilirubin,Total < 0.2 mg/dL (0.1-1.0); Lactate Dehydrogenase 210 U/L (135-225); Phosphorous 2.2 mg/dL (2.5-4.5); Triglycerides 270 mg/dL (<150); Uric Acid 4.5 mg/dL (2.5-8.0)
[2021-04-20] MEDS ORDERED: METOCLOPRAMIDE 10 MG/2 ML VIAL ONE ×2 (00:50→07:25)
[2021-04-20] MEDS ORDERED: INSULIN REGULAR, HUMAN 1 UNIT/0.01 ML UNIT ONE (02:56)
[2021-04-20] MEDS: INSULIN REGULAR, HUMAN 50 UNIT in 0.9 % SODIUM CHLORIDE 99.5 ML IV SCH ×2 (03:00→03:12)
[2021-04-20] MEDS ORDERED: INSULIN REGULAR, HUMAN 50 UNIT in 0.9 % SODIUM CHLORIDE 99.5 ML IV SCH ×2 (03:15→15:00)
[2021-04-20 03:35] LABS: ABG Methemoglobin 0.3 % (0.4-1.5); Total Hemoglobin 10.4 gm/Dl (12.0-15.0); VBG Base Excess -2 (-2-2); VBG HCO3 22.1 mmol/L (24.0-28.0); VBG Oxygen Saturation 91.3 % (40.0-70.0); VBG PCO2 33.6 mmHg (41.0-51.0); VBG PH 7.44 U (7.32-7.42); VBG PO2 114.3 mmHg (25.0-40.0); VBG Total CO2 23.1 mmol/L (25.0-29.0)
[2021-04-20 03:50] LABS: Basophils # (Auto) 0 K/mcL (0.00-0.30); Basophils % (Auto) 0 % (0.0-2.0); Eosinophils # (Auto) 0 K/mcL (0.00-0.70); Eosinophils % (Auto) 0 % (0.0-7.0); Hematocrit 32.1 % (34.1-44.9); Hemoglobin 10.4 g/dL (11.2-15.7); Lymphocytes # (Auto) 1.79 K/mcL (1.50-4.80); Lymphocytes % (Auto) 49.2 % (15.5-49.0); Mean Cell Volume 91.5 fL (80.0-100.0); Mean Corpuscular HGB Conc 32.4 g/dL (31.0-36.0); Mean Platelet Volume 9.5 fL (7.4-10.4); Monocytes # (Auto) 0.43 K/mcL (0.10-0.90); Monocytes % (Auto) 11.8 % (1.0-12.0); Platelet Count 172 K/mcL (140-440); RBC 3.51 M/mcL (3.59-5.38); Red Cell Distribution Width 13.7 % (11.5-14.5); WBC 3.6 K/mcL (4.5-11.0)
[2021-04-20 03:59] LABS: ALT/SGPT 216 U/L (<40); AST/SGOT 40 U/L (<32); Albumin 3.4 gm/dL (3.2-5.2); Albumin/Globulin Ratio 1.3 (1.0-2.3); Alkaline Phosphatase 292 U/L (39-117); Bilirubin,Total < 0.2 mg/dL (0.1-1.0); Blood Urea Nitrogen 9 mg/dL (6-20); Calcium 7.8 mg/dL (8.6-10.4); Carbon Dioxide 19 mmol/L (22-30); Chloride 106 mmol/L (96-108); Globulin 2.6 gm/dL (2.2-3.7); Glomerular Filtration Rate 101; Glucose 187 mg/dL (70-105); Phosphorous 2.1 mg/dL (2.5-4.5)
[2021-04-20] MEDS: DEXTROSE 5%-1/2NS W/20MEQ KCL 1,000 ML IV SCH ×4 (04:09→11:57)
[2021-04-20] MEDS: 0.45 % SODIUM CHLORIDE 1,000 ML IV SCH ×3 (04:16→11:57)
[2021-04-20] MEDS: 0.9 % SODIUM CHLORIDE 10 ML SYRINGE IV SCH ×4 (06:13→21:52)
[2021-04-20] MEDS ORDERED: PANTOPRAZOLE 40 MG TABLET PO SCH (07:30)
[2021-04-20] MEDS ORDERED: HYDROcodone/APAP 5/325MG TABLET PO PRN ×2 (07:39→13:52)
[2021-04-20 07:43] LABS: ABG Methemoglobin 0.3 % (0.4-1.5); VBG Base Excess -2 (-2-2); VBG HCO3 23.3 mmol/L (24.0-28.0); VBG PCO2 42.8 mmHg (41.0-51.0); VBG PH 7.35 U (7.32-7.42); VBG PO2 22.8 mmHg (25.0-40.0); VBG Total CO2 24.6 mmol/L (25.0-29.0)
[2021-04-20] MEDS ORDERED: ALBUTEROL SULFATE 200 PUFF INHALER INH PRN ×2 (07:45→13:52)
[2021-04-20 08:00] LABS: Carbon Dioxide 22 mmol/L (22-30); Chloride 102 mmol/L (96-108)
[2021-04-20] MEDS ORDERED: FAMOTIDINE 20 MG TABLET PO SCH (09:00)
[2021-04-20] MEDS ORDERED: DULoxetine 30 MG CAPSULE PO SCH ×2 (09:00)
[2021-04-20] MEDS ORDERED: ENOXAPARIN 40 MG/0.4 ML SYRINGE SQ SCH (09:00)
[2021-04-20] MEDS ORDERED: Diclofenac Sodium 75 mg tablet,delayed release PO SCH (09:00)
[2021-04-20] MEDS ORDERED: LACOSAMIDE 10 MG/ML PO SCH ×2 (09:00→21:00)
[2021-04-20] MEDS ORDERED: FEXOFENADINE 180 MG TABLET PO SCH (09:00)
[2021-04-20] MEDS ORDERED: DOCUSATE SODIUM 100 MG CAPSULE PO SCH (09:00)
[2021-04-20] MEDS ORDERED: ALPRAZolam 0.5 MG TABLET PO SCH (09:00)
[2021-04-20] MEDS ORDERED: SENNOSIDES 8.8 MG/5 ML ML PT SCH (09:00)
[2021-04-20] MEDS ORDERED: ZONISAMIDE 100 MG PO SCH ×4 (09:00→21:00)
[2021-04-20] MEDS ORDERED: guaiFENesin/DEXTROMETHORPHAN ORAL SOL PO PRN ×2 (09:34→13:52)
--- NOTE | 2021-04-20 09:34 | Internal Med Progress Note ---
SUBJECTIVE Subjective Patient information: Note initiated : 04/20/21 at 9:33 am Service Date, if different from initiated Date: [] Patient: Debby King a 51 y/o F admitted on 04/19/21 for Covid, possible DKA. Chief Complaint: [DKA type 1] Interval history: History of present illness: Ms. King is a 51 year old F history of seizure and type 1 diabetes mellitus, presenting with 3-day history of general body weakness, nausea, decreased oral intake, muscle and bone aches. 1 week ago she started to have symptoms of runny nose and mild shortness of breath. She self test herself for Covid pneumonia and she was tested +6 days ago. 3 days ago, she started to experience general body weakness, nausea, decreased oral intake, muscle and bone aches. She used an insulin pump with glucose monitor and in the past 3 days, her blood glucose levels was elevated from 300-500s. Due to her symptoms, he came to our ED for further evaluations this evening. Vital signs significant for tachycardia with heart rate up in the 110s. Labs significant for blood glucose of 370, serum bicarb of 10, and serum anion gap elevated to 27. As stated before, she was tested positive for Covid 6 days ago. Chest x-ray showing mild left basilar parenchymal infiltrate consistent with pneumonia. 04/20: Anion gap 12 this morning. Fasting glucose 187. Insulin drip and IV fluid still running. Denies nausea or vomiting. Denies abdominal pain. Mild SOB. c/o nonproductive cough. Denies fever, chills, or sweating. Denies muscle or joint pain. Constitutional Vitals: Vital Signs Temp Pulse Resp BP Pulse Ox 36.3 C 78 17 121/74 100 04/20/21 08:01 04/20/21 06:01 04/20/21 09:01 04/20/21 09:01 04/20/21 09:01 Period Temp Pulse Resp BP Sys/Walker Pulse Ox Last 24 Hr 36.1 C-37.1 C 78-112 12-22 103-151/61-133 96-100 Intake and Output 04/19/21 04/20/21 04/20/21 21:59 05:59 13:59 Intake Total 1000 1018 1006 Output Total 375 450 Balance 1000 643 556 Weight 70.307 kg Intake & Output: Intake & Output 04/19/21 04/20/21 04/20/21 21:59 05:59 13:59 Intake Total 1000 1018 1006 Output Total 375 450 Balance 1000 643 556 Weight 70.307 kg Intake: IV 1000 1018 1006 Sodium Chloride 0.9% 1,000 ml @ 1000 Wide Open IV BOLUS ONE Rx#: [id number] Dextrose 5%-1/2Ns W/20Meq KCl 1 1000 1000 ,000 ml @ 250 mls/hr IV .Q4H JASMINA Rx#:[id number] HumuLIN R 50 UNIT In Sodium 18 6 Chloride 0.9% 99.5 ml @ Sliding Scale IV CONT JASMINA Rx#: [id number] Oral 0 Output: Void Amount 375 450 Other: Urine Appearance Clear Clear Urine Color Pale Bright Yellow Urine Odor Normal General appearance: average body habitus, cooperative and no acute distress Head Head exam: Present atraumatic and normal inspection Eye Eye exam: Present normal appearance ENT ENT exam: Present mucous membranes moist, normal exam and normal external ear exam Neck Neck exam: Present normal inspection Respiratory Respiratory exam: Present normal respiratory exam and rhonchi; Absent wheezes Cardiovascular Cardiovascular exam: Present normal rate and rhythm GI/Abdominal GI/Abdominal exam: Present normal bowel sounds Back Exam Back exam: Present normal inspection Neurological Exam Neurological exam: Present alert and oriented X3 Skin Skin exam: Present intact and warm OBJ DATA Labs CBC & Chem 7: 04/20/21 03:11 04/20/21 07:22 Labs: Abnormal Lab Results 04/20/21 04/20/21 04/20/21 07:22 03:11 03:11 WBC 3.6 L RBC 3.51 L Hgb 10.4 L Hct 32.1 L Lymph % (Auto) 49.2 H Lymph # (Auto) Absolute Neutrophils 1.42 L ABG Methemoglobin 0.3 L VBG pH VBG pCO2 VBG pO2 22.8 L VBG HCO3 23.3 L VBG Total CO2 24.6 L VBG O2 Saturation VBG Base Excess Carboxyhemoglobin 5.9 H Total Hemoglobin 11.0 L Sodium Chloride Carbon Dioxide 19 L POC Total CO2 Anion Gap Glucose 187 H POC Glucose Hemoglobin A1c Calcium 7.8 L Phosphorus 2.1 L GGT AST 40 H ALT 216 H Alkaline Phosphatase 292 H Triglycerides Beta-Hydroxybutyrate Urine Glucose (UA) Urine Ketones Urine Mucus 04/20/21 04/19/21 04/19/21 03:11 23:45 23:45 WBC RBC Hgb Hct Lymph % (Auto) Lymph # (Auto) Absolute Neutrophils ABG Methemoglobin 0.3 L 0.3 L VBG pH 7.44 H VBG pCO2 33.6 L 36.9 L VBG pO2 114.3 H 54.5 H VBG HCO3 22.1 L 19.2 L VBG Total CO2 23.1 L 20.4 L VBG O2 Saturation 91.3 H 84.3 H VBG Base Excess -6 L Carboxyhemoglobin 7.1 H 5.9 H Total Hemoglobin 10.4 L 11.2 L Sodium Chloride Carbon Dioxide 17 L POC Total CO2 Anion Gap Glucose 157 H POC Glucose Hemoglobin A1c 12.1 H Calcium 8.2 L Phosphorus 2.2 L GGT 282 H AST 46 H ALT 246 H Alkaline Phosphatase 323 H Triglycerides 270 H Beta-Hydroxybutyrate Urine Glucose (UA) Urine Ketones Urine Mucus 04/19/21 04/19/21 04/19/21 23:30 18:28 18:28 WBC 3.3 L RBC Hgb Hct Lymph % (Auto) Lymph # (Auto) 0.97 L Absolute Neutrophils ABG Methemoglobin VBG pH VBG pCO2 VBG pO2 VBG HCO3 VBG Total CO2 VBG O2 Saturation VBG Base Excess Carboxyhemoglobin Total Hemoglobin Sodium 132 L Chloride 95 L Carbon Dioxide 10 L* POC Total CO2 Anion Gap 27.0 H Glucose 370 H POC Glucose Hemoglobin A1c Calcium Phosphorus GGT AST 57 H ALT 303 H Alkaline Phosphatase 403 H Triglycerides Beta-Hydroxybutyrate 7.89 H Urine Glucose (UA) >=500 A Urine Ketones 80 A Urine Mucus Few A 04/19/21 18:28 WBC RBC Hgb Hct Lymph % (Auto) Lymph # (Auto) Absolute Neutrophils ABG Methemoglobin VBG pH VBG pCO2 VBG pO2 VBG HCO3 VBG Total CO2 VBG O2 Saturation VBG Base Excess Carboxyhemoglobin Total Hemoglobin Sodium Chloride Carbon Dioxide POC Total CO2 13 L Anion Gap Glucose POC Glucose 376 H Hemoglobin A1c Calcium Phosphorus GGT AST ALT Alkaline Phosphatase Triglycerides Beta-Hydroxybutyrate Urine Glucose (UA) Urine Ketones Urine Mucus Meds: Medications Acetaminophen (Acetaminophen 325 Mg Tablet) 650 mg PO Q4-6HP PRN; Protocol PRN Reason: Per Pain Protocol/Fever > 101 Hydrocodone Bitart/Acetaminophen (Hydrocodone/Apap 5/325mg Tablet) 1 tab PO Q8HP PRN PRN Reason: breakthrough headache pain Albuterol Sulfate (Albuterol Sulfate 200 Puff Inhaler) 2 puff INH Q4HP PRN PRN Reason: cough or wheezing Albuterol/Ipratropium (Ipratropium/Albuterol 3 Ml Ampul.Neb) 3 ml NEB Q4HRT PRN PRN Reason: Wheezing Diagnostic Test (Pha) (Accu-Chek 1 Each Strip) 1 each FS Q1 [facility] Last Admin: 04/20/21 09:15 Dose: 1 each Documented by: Diagnostic Test (Pha) (Accu-Chek 1 Each Strip) 1 each FS ACHS [facility] Docusate Sodium (Docusate Sodium 100 Mg Capsule) 100 mg PO BID [facility] Last Admin: 04/20/21 08:01 Dose: 100 mg Documented by: Duloxetine HCl (Duloxetine 30 Mg Capsule) 30 mg PO QDAY [facility] Last Admin: 04/20/21 09:06 Dose: Not Given Documented by: Enoxaparin Sodium (Enoxaparin 40 Mg/0.4 Ml Syringe) 40 mg SQ DAILY [facility] Last Admin: 04/20/21 08:02 Dose: 40 mg Documented by: Famotidine (Famotidine 20 Mg Tablet) 20 mg PO QDAY [facility] Last Admin: 04/20/21 08:02 Dose: 20 mg Documented by: Fexofenadine HCl (Fexofenadine 180 Mg Tablet) 180 mg PO BID [facility] Last Admin: 04/20/21 08:06 Dose: 180 mg Documented by: Sodium Chloride (Sodium Chloride 0.45%) 1,000 mls @ 250 mls/hr IV .Q4H [facility] Last Admin: 04/20/21 07:09 Dose: Not Given Documented by: Potassium Chloride/Dextrose/Sod Cl (Dextrose 5%-1/2ns W/20meq Kcl) 1,000 mls @ 250 mls/hr IV .Q4H [facility] Last Admin: 04/20/21 08:29 Dose: 250 mls/hr Documented by: Insulin Human Regular 50 unit/ (Sodium Chloride) 100 mls @ 0 mls/hr IV Q12H [facility]; Protocol Ibuprofen (Ibuprofen 600 Mg Tablet) 600 mg PO QIDP PRN; Protocol PRN Reason: PAIN/FEVER > 101 Lorazepam (Lorazepam 0.5 Mg Tablet) 0.25 mg PO BID PRN PRN Reason: anxiety Lorazepam (Lorazepam 2 Mg/Ml Vial) 1 mg IV Q2HP PRN PRN Reason: ANXIETY/SEDATION Metaxalone (Metaxalone 800 Mg Tablet) 800 mg PO DAILYP PRN PRN Reason: significant neck tension Metoclopramide HCl (Metoclopramide 10 Mg/2 Ml Vial) 10 mg IV Q6 [facility] Last Admin: 04/20/21 07:22 Dose: 10 mg Documented by: Non-Formulary Medication (Alprazolam) 2 mg PO PRN PRN PRN Reason: Seizure Activity Non-Formulary Medication (Erythromycin) 250 mg PO TID [facility] Non-Formulary Medication (Lacosamide [Vimpat]) 250 mg PO BID [facility] Non-Formulary Medication (Zonisamide) 300 mg PO QHS [facility] Non-Formulary Medication (Zonisamide) 100 mg PO QAM [facility] Ondansetron HCl (Ondansetron 4 Mg/2 Ml Vial) 4 mg IV Q4-6HP PRN; Protocol PRN Reason: Nausea And Vomiting Pantoprazole Sodium (Pantoprazole 40 Mg Tablet) 40 mg PO BIDAC [facility] Last Admin: 04/20/21 08:01 Dose: 40 mg Documented by: Diclofenac Sodium 75 Mg Tablet,Delayed Release 1 dose PO BID [facility] Last Admin: 04/20/21 08:02 Dose: Not Given Documented by: Lacosamide [Vimpat] (10mg/Ml Solution) 25 dose PO BID [facility] Last Admin: 04/20/21 09:10 Dose: 25 dose Documented by: Zonisamide [Zonegran (] 100 Mg Cap) 1 dose PO DAILY [facility] Zonisamide [Zonegran (] 100 Mg Cap) 3 dose PO HS [facility] Senna (Sennosides 8.8 Mg/5 Ml Ml) 8.8 mg PT DAILY [facility] Last Admin: 04/20/21 08:02 Dose: Not Given Documented by: Sodium Chloride (0.9 % Sodium Chloride 10 Ml Syringe) 10 ml IV Q8 [facility] Last Admin: 04/20/21 06:13 Dose: Not Given Documented by: ABG Interpretation ABG results: 04/19/21 04/20/21 04/20/21 23:45 03:11 07:22 ABG Methemoglobin 0.3 L 0.3 L 0.3 L VBG pH 7.34 7.44 H 7.35 VBG pCO2 36.9 L 33.6 L 42.8 VBG pO2 54.5 H 114.3 H 22.8 L VBG HCO3 19.2 L 22.1 L 23.3 L VBG Total CO2 20.4 L 23.1 L 24.6 L VBG O2 Saturation 84.3 H 91.3 H 47.0 VBG Base Excess -6 L -2 -2 A/P Assessment and plan (1) DKA, type 1: Status: Acute (2) Asymptomatic COVID-19 virus infection: Status: Acute (3) Epilepsy: Status: Chronic (4) GERD (gastroesophageal reflux disease): Status: Chronic Narrative A/P Narrative: Assessment and plan: 1. Type I DKA: Stays in inpatient ICU with telemetry Hemoglobin A1c Resume SQ insulin therapy via insulin pump. Bridge with insulin drip and IV fluid for 2 hours. 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 Zofran IV as needed nausea vomiting Reglan IV as needed nausea vomiting #2 asymptomatic Covid pneumonia: Patient is tolerating room air with oxygen saturation in the upper 90s, so no treatment for Covid such as remdesivir or dexamethasone is indicated at the moment Isolation protocol with airborne and contact isolation Continue to monitor for patient's oxygen saturations and would initiate Covid specific treatment when patient started to show signs and symptoms of Covid pneumonia #3 history of seizures: Continue Vimpat per home regimen Continue Zonisamide per home regimen #4 history of GERD: Continue oral PPI from home regimen GI prophylaxis: Continue oral PPI from home regimen DVT prophylaxis: Lovenox CODE STATUS: Full code Prognosis: Guarded Dispositions: Inpatient ICU Critical care time: 45min Time Spent With Patient Time: Total time spent is greater than 50% in coordination of care (as documented) at patient's floor/unit and/or counseling patient: QUALITY VTE Deep Vein Thrombosis/Pulmonary Embolism Present on Admission: No
[2021-04-20] MEDS ORDERED: ALPRAZolam 0.5 MG TABLET PO PRN ×2 (10:45→13:52)
[2021-04-20] MEDS ORDERED: ERYTHROMYCIN BASE 250 MG TABLET PO SCH (12:00)
[2021-04-20] MEDS ORDERED: METOCLOPRAMIDE 10 MG/2 ML VIAL IV PRN ×2 (12:12→13:52)
[2021-04-20] MEDS ORDERED: MIRTAZAPINE 15 MG TABLET PO SCH (13:17)
[2021-04-20] MEDS ORDERED: LOPERAMIDE 2 MG CAPSULE PO PRN ×2 (13:45→13:52)
[2021-04-20] MEDS ORDERED: ACETAMINOPHEN 325 MG TABLET PO PRN (13:52)
[2021-04-20] MEDS ORDERED: LORazepam 0.5 MG TABLET PO PRN (13:52)
[2021-04-20] MEDS ORDERED: METAXALONE 800 MG TABLET PO PRN (13:52)
[2021-04-20] MEDS ORDERED: IPRATROPIUM/ALBUTEROL 3 ML AMPUL.NEB NEB PRN (13:52)
[2021-04-20] MEDS ORDERED: ONDANSETRON 4 MG/2 ML VIAL IV PRN (13:52)
[2021-04-20] MEDS ORDERED: LORazepam 2 MG/ML VIAL IV PRN (13:52)
[2021-04-20] MEDS: PANTOPRAZOLE 40 MG TABLET PO SCH (17:03)
[2021-04-20] MEDS: ERYTHROMYCIN BASE 250 MG TABLET PO SCH (17:09)
[2021-04-20] MEDS: FEXOFENADINE 180 MG TABLET PO SCH (21:37)
[2021-04-20] MEDS: LACOSAMIDE 10 MG/ML PO SCH (21:38)
[2021-04-20] MEDS: Diclofenac Sodium 75 mg tablet,delayed release PO SCH (21:39)
[2021-04-20] MEDS: DOCUSATE SODIUM 100 MG CAPSULE PO SCH (21:39)
[2021-04-20] MEDS: IBUPROFEN 600 MG TABLET PO PRN (21:40)
[2021-04-21] MEDS: 0.9 % SODIUM CHLORIDE 10 ML SYRINGE IV SCH ×2 (03:31→04:15)
[2021-04-21 07:05] LABS: Basophils # (Auto) 0.01 K/mcL (0.00-0.30); Basophils % (Auto) 0.3 % (0.0-2.0); Eosinophils # (Auto) 0.01 K/mcL (0.00-0.70); Eosinophils % (Auto) 0.3 % (0.0-7.0); Hemoglobin 10.4 g/dL (11.2-15.7); Lymphocytes # (Auto) 1.95 K/mcL (1.50-4.80); Lymphocytes % (Auto) 55.1 % (15.5-49.0); Mean Cell Volume 90.4 fL (80.0-100.0); Mean Corpuscular HGB Conc 32.5 g/dL (31.0-36.0); Mean Platelet Volume 9.6 fL (7.4-10.4); Monocytes # (Auto) 0.34 K/mcL (0.10-0.90); Monocytes % (Auto) 9.6 % (1.0-12.0); Neutrophils % (Auto) 34.7 % (38.0-78.0); Platelet Count 163 K/mcL (140-440); RBC 3.54 M/mcL (3.59-5.38); Red Cell Distribution Width 13.3 % (11.5-14.5); WBC 3.5 K/mcL (4.5-11.0)
[2021-04-21 08:07] LABS: ALT/SGPT 167 U/L (<40); AST/SGOT 45 U/L (<32); Albumin 3.4 gm/dL (3.2-5.2); Albumin/Globulin Ratio 1.3 (1.0-2.3); Alkaline Phosphatase 255 U/L (39-117); Bilirubin,Total 0.2 mg/dL (0.1-1.0); Blood Urea Nitrogen 10 mg/dL (6-20); Calcium 8.6 mg/dL (8.6-10.4); Carbon Dioxide 22 mmol/L (22-30); Chloride 104 mmol/L (96-108); Globulin 2.6 gm/dL (2.2-3.7); Glomerular Filtration Rate 106; Glucose 227 mg/dL (70-105); Phosphorous 2.2 mg/dL (2.5-4.5)
[2021-04-21] MEDS ORDERED: ZONISAMIDE 100 MG PO SCH ×2 (09:00)
[2021-04-21] MEDS: PANTOPRAZOLE 40 MG TABLET PO SCH (09:00)
[2021-04-21] MEDS ORDERED: SENNOSIDES 8.8 MG/5 ML ML PT SCH (09:00)
[2021-04-21] MEDS ORDERED: FAMOTIDINE 20 MG TABLET PO SCH (09:00)
[2021-04-21] MEDS ORDERED: ENOXAPARIN 40 MG/0.4 ML SYRINGE SQ SCH (09:00)
[2021-04-21] MEDS ORDERED: MIRTAZAPINE 15 MG TABLET PO SCH (09:00)
[2021-04-21] MEDS: FEXOFENADINE 180 MG TABLET PO SCH (09:00)
[2021-04-21] MEDS ORDERED: MIRTAZAPINE 7.5 MG PO SCH (09:00)
[2021-04-21] MEDS: IBUPROFEN 600 MG TABLET PO PRN (09:00)
[2021-04-21] MEDS ORDERED: DULoxetine 30 MG CAPSULE PO SCH (09:00)
[2021-04-21] MEDS: ERYTHROMYCIN BASE 250 MG TABLET PO SCH ×2 (09:03→11:49)
[2021-04-21] MEDS: Diclofenac Sodium 75 mg tablet,delayed release PO SCH (09:05)
[2021-04-21] MEDS: LACOSAMIDE 10 MG/ML PO SCH (09:07)
[2021-04-21] MEDS: DOCUSATE SODIUM 100 MG CAPSULE PO SCH (09:43)
--- NOTE | 2021-04-21 10:17 | Discharge Summary ---
Discharge Provider Provider Patient information: Note initiated : 04/21/21 at 10:15 am Service Date, if different from initiated Date: [] Patient: Debby King 51 y/o F admitted on 04/19/21 for Covid, possible DKA. Chief Complaint: [] Date of admission: 04/19/21 22:35 Discharge date: 04/21/21 Primary care physician: FRED Davila Attending physician on admission: Valentino Pardo Consults: 04/19/21 Consult to Physician [CONS] Stat Comment: Consulting Provider: Valentino Pardo Reason For Exam: Physician to Consult Attending physician on discharge: Valentino Pardo Discharge Meds Discharge Medications Home Medications acyclovir 400 mg tablet 400 mg PO TID PRN tab 07/09/16 [History Confirmed 04/20/21 Last Taken Unknown] blood sugar diagnostic ([employer] Verio test strips) 07/09/16 [History Confirmed 12/17/20 Last Taken Unknown] diclofenac sodium 75 mg tablet,delayed release 75 mg PO BID 07/09/16 [History Confirmed 04/20/21 Last Taken 04/18/21 21:00] fexofenadine [May Allergy] 180 mg PO QAM 07/09/16 [History Confirmed 04/20/21 Last Taken 04/18/21 08:00] hydrocodone 5 mg-acetaminophen 325 mg tablet 1 tab PO Q8H PRN 07/09/16 [History Confirmed 04/20/21 Last Taken 07/28/17] infusion set for insulin pump [t:30 Infusion Set] 1 unit MISCELLANE QAM 07/09/16 [History Confirmed 04/20/21 Last Taken 04/19/21] insulin lispro 100 unit/mL subcutaneous solution (Humalog U-100 Insulin) See Rx Instructions .ROUTE .COMPLEX ml 07/09/16 [History Confirmed 04/20/21 Last Taken 04/19/21] lorazepam 0.5 mg tablet 0.5 mg PO BID PRN tab 07/09/16 [History Confirmed Last Taken Unknown] metaxalone 800 mg tablet 800 mg PO QDAY PRN tab 07/09/16 [History Confirmed 04/20/21 Last Taken 07/26/17] pantoprazole 40 mg tablet,delayed release 40 mg PO BID tab 07/09/16 [History Confirmed 04/20/21 Last Taken 04/18/21 21:00] subcutaneous insulin pump (t:slim Insulin Delivery System) 07/09/16 [History Confirmed 12/17/20 Last Taken Unknown] ketamine 100 mg/10 mL (10 mg/mL) in sodium chlor,iso-osm inj syringe 100 mg IM WEEKLY 10/05/18 [History Confirmed 04/20/21 Last Taken 04/16/21 08:00] famotidine 20 mg tablet 20 mg PO QHS 02/19/20 [History Confirmed 04/20/21 Last Taken 04/18/21 21:00] albuterol sulfate 90 mcg/actuation aerosol inhaler 2 puff INHALATION Q4H PRN #6.7 g 01/16/21 [Rx Confirmed 04/20/21 Last Taken Unknown] duloxetine 30 mg capsule,delayed release 30 mg PO QDAY 02/20/21 [History Confirmed 04/20/21 Last Taken 04/18/21 08:00] alprazolam 2 mg tablet 2 mg PO DAILY 04/20/21 [History Confirmed 04/20/21 Last Taken Unknown] erythromycin 250 mg tablet 250 mg PO TID 04/20/21 [History Confirmed 04/20/21 Last Taken 04/18/21 21:00] lacosamide 10 mg/mL oral solution (Vimpat) 250 mg PO BID 04/20/21 [History Confirmed 04/20/21 Last Taken 04/19/21 08:00] mirtazapine 7.5 mg tablet 7.5 mg PO QDAY 04/20/21 [History Confirmed 04/20/21 Last Taken 04/18/21] promethazine 25 mg tablet 25 mg PO Q6H PRN 04/20/21 [History Confirmed 04/20/21 Last Taken Unknown] zonisamide 100 mg capsule 100 mg PO QAM 04/20/21 [History Confirmed 04/20/21 Last Taken 04/18/21 08:00] zonisamide 100 mg capsule 300 mg PO QHS 04/20/21 [History Confirmed 04/20/21 Last Taken 04/18/21 21:00] COURSE Hospital Course Hospital course: She was admitted on April 19, 2021 to ICU for diabetic ketoacidosis associated with type 1 diabetes as well as asymptomatic Covid pneumonia. She was on room air during her whole course of hospitalization and test Covid specific treatment such as high-dose steroid and antiviral's were not given. Patient was started on insulin drip as well as IV fluid resuscitation's as well as frequent chemistry check and hourly blood sugar monitoring was given. By day to hospitalizations, she was being transitioned from insulin drip to subcutaneous insulin therapy via her own insulin pump. She tolerated diabetic diet well. By day 3 hospitalizations, she reached clinical stability, any anion gap closed, and serum glucose level controlled at around 200s. The decision was thus made to discharge her home with 2 weeks PCP appointment made for her. All questions were answered prior to patient being physically discharged. Discharge diagnosis: CoVID pnuemonia, DKA type 1 Time Spent with Patient Time attestation: Total time spent providing and/or coordinating discharge services: Time spent: Less than 30 minutes EXAM Constitutional Vitals: Temp Pulse Resp BP Pulse Ox 36.4 C 87 18 125/73 96 04/21/21 07:55 04/21/21 07:55 04/21/21 07:55 04/21/21 07:55 04/21/21 07:55 General appearance: cooperative and no acute distress Head Head exam: Present atraumatic and normocephalic Eye Eye exam: Present EOMI and PERRL ENT ENT exam: Present mucous membranes moist, normal exam and normal external ear exam Neck Neck exam: Present normal inspection; Absent lymphadenopathy, tenderness or thyromegaly Respiratory Respiratory exam: Absent accessory muscle use, respiratory distress or wheezes Cardiovascular Cardiovascular exam: Present normal rate and rhythm; Absent JVD GI/Abdominal GI/Abdominal exam: Present normal bowel sounds and soft; Absent organomegaly or tenderness Extremities Exam Extremities exam: Present full ROM, normal capillary refill and normal inspection; Absent tenderness Neurological Exam Neurological exam: Present alert, CN II-XII intact and oriented X3; Absent motor sensory deficit Psychiatric Psychiatric exam: Present normal affect and normal mood; Absent anxious or depressed Skin Skin exam: Present dry and intact Discharge Data Data Completed and Pending Labs on day of discharge: Labs from last 24 hours 04/21/21 04/21/21 05:27 05:27 WBC 3.5 L RBC 3.54 L Hgb 10.4 L Hct 32.0 L MCV 90.4 MCH 29.4 MCHC 32.5 RDW 13.3 Plt Count 163 MPV 9.6 Neut % (Auto) 34.7 L Lymph % (Auto) 55.1 H [place] % (Auto) 9.6 Eos % (Auto) 0.3 Baso % (Auto) 0.3 Lymph # (Auto) 1.95 [place] # (Auto) 0.34 Eos # (Auto) 0.01 Baso # (Auto) 0.01 Absolute Neutrophils 1.23 L Sodium 135 Potassium 3.9 Chloride 104 Carbon Dioxide 22 Anion Gap 9.0 BUN 10 Creatinine 0.6 GFR Calculation 106 Glucose 227 H Calcium 8.6 Phosphorus 2.2 L Magnesium 2.0 Total Bilirubin 0.2 AST 45 H ALT 167 H Alkaline Phosphatase 255 H Total Protein 6.0 Albumin 3.4 Globulin 2.6 Albumin/Globulin Ratio 1.3 Preliminary micro results at discharge 04/19/21 23:45 Blood Culture - Preliminary Blood 04/19/21 23:40 Blood Culture - Preliminary Blood Discharge Plan Patient/Caregiver Discharge Instructions Activity: increase activity as tolerated Diet: Consistent Carbohydrate Prescriptions: Continued pantoprazole 40 mg tablet,delayed release (DR/EC) 40 mg PO BID 0RF diclofenac sodium 75 mg tablet,delayed release (DR/EC) 75 mg PO BID 0RF acyclovir 400 mg tablet 400 mg PO TID PRN (Reason: Cold Sores) 0RF (DME) subcutaneous insulin pump [t:slim Insulin Delivery System] misc See Dose Instructions .ROUTE .MEDSUPPLY 0RF Rx Instructions: As directed infusion set for insulin pump 1 unit MISCELLANE QAM 0RF insulin lispro [Humalog U-100 Insulin] 100 unit/mL solution See Rx Instructions .ROUTE .COMPLEX 0RF Rx Instructions: 0.4unit/hour basal rate, 1unit per 10 carbs hydrocodone-acetaminophen 5-325 mg tablet 1 tab PO Q8H PRN (Reason: significant breakthrough headache) 0RF fexofenadine 180 mg PO QAM 0RF (DME) blood sugar diagnostic [[employer] Verio test strips] strip See Dose Instructions .ROUTE .MEDSUPPLY 0RF Rx Instructions: As directed lorazepam 0.5 mg tablet 0.5 mg PO BID PRN (Reason: anxiety) 0RF ketamine in NaCl, iso-osmotic 100 MG/10 ML syringe 100 mg IM WEEKLY 0RF famotidine 20 mg Tablet 20 mg PO QHS 0RF albuterol sulfate 90 mcg/actuation HFA aerosol inhaler 2 puff inhalation Q4H PRN (Reason: cough or wheezing) Qty: 6.7 0RF duloxetine 30 mg Capsule,Delayed Release(Dr/Ec) 30 mg PO QDAY 0RF zonisamide 100 mg Capsule 100 mg PO QAM 0RF zonisamide 100 mg Capsule 300 mg PO QHS 0RF promethazine 25 mg Tablet 25 mg PO Q6H PRN (Reason: Nausea) 0RF alprazolam 2 mg Tablet 2 mg PO DAILY 0RF Vimpat 10 mg/mL Solution 250 mg PO BID 0RF mirtazapine 7.5 mg Tablet 7.5 mg PO QDAY 0RF No Action metaxalone 800 mg tablet 800 mg PO QDAY PRN (Reason: significant neck tension) 0RF erythromycin 250 mg Tablet 250 mg PO TID 0RF Rx Instructions: take 1 tablet AM and HS, take 1 tablet at lunchtime PRN Follow Up Plan Follow up with: Porfirio Dickinson ARNP [Primary Care Provider] - Patient Disposition: Home, Self-Care Prognosis: Serious Rehab Potential: Good I certify that the patient requires SNF services: No Overall status at discharge: patient is back to baseline Discharge Orders: Discharge Order (Routine); Ordered 04/21/21 Ordered By: Valentino ESTRADA VTE Deep Vein Thrombosis/Pulmonary Embolism Present on Admission: No
== END 2021-04-21 12:40 | disposition home or self-care (01) | DRG 177 ==
LOC: ED 17:24 → ICU 22:35 → MEDSUR 04-20 19:49
PROVIDERS: ADMIT Internal Medicine; ATTEND Internal Medicine

== ENCOUNTER 2023-06-05 15:04 | Inpatient (IN) ==
[2023-06-05] MEDS ORDERED: 0.9 % SODIUM CHLORIDE 1,000 ML IV ONE (15:17)
[2023-06-05 16:03] LABS: Basophils # (Auto) 0.04 K/mcL (0.00-0.30); Basophils % (Auto) 0.5 % (0.0-2.0); Eosinophils # (Auto) 0.02 K/mcL (0.00-0.70); Eosinophils % (Auto) 0.3 % (0.0-7.0); Hematocrit 40.6 % (34.1-44.9); Hemoglobin 13.1 g/dL (11.2-15.7); Lymphocytes # (Auto) 1.78 K/mcL (1.50-4.80); Lymphocytes % (Auto) 22.8 % (15.5-49.0); Mean Cell Volume 94.4 fL (80.0-100.0); Mean Corpuscular HGB Conc 32.3 g/dL (31.0-36.0); Mean Platelet Volume 9.4 fL (8.8-12.5); Monocytes # (Auto) 0.38 K/mcL (0.10-0.90); Monocytes % (Auto) 4.9 % (1.0-12.0); Neutrophils % (Auto) 71.5 % (38.0-78.0); Platelet Count 325 K/mcL (140-440); Red Cell Distribution Width 13.5 % (11.5-14.5); WBC 7.8 K/mcL (4.5-11.0)
[2023-06-05] MEDS ORDERED: LACTATED RINGERS 1,000 ML IV ONE (16:17)
[2023-06-05 16:30] LABS: Appearance,Urine Clear (Clear); Bacteria,Urine Few /hpf (0); Bilirubin,Urine Negative (Negative); Color,Urine Yellow; Culture Indicated,Urine Yes; Glucose,Urine (UA) 500 mg/dL (Negative); Ketones,Urine >=160 mg/dL (Negative); Leukocyte Esterase,Urine Negative /uL (Negative); Nitrate,Urine Negative (Negative); Protein,Urine Negative (Negative); Specific Gravity,Urine 1.025 (1.000-1.035); Urine Blood Negative ery/mcL (Negative); Urine RBC 0 /hpf (0-3); Urine Squamous Epithelial Cell 1 /hpf (0-4); Urine WBC 1 /hpf (0-4); Urobilinogen,Urine Normal
[2023-06-05 16:45] LABS: ALT/SGPT 39 U/L (<40); AST/SGOT 32 U/L (<32); Albumin 4.9 gm/dL (3.2-5.2); Albumin/Globulin Ratio 1.8 (1.0-2.3); Alkaline Phosphatase 49 U/L (39-117); Bilirubin,Total 0.4 mg/dL (0.1-1.0); Blood Urea Nitrogen 13 mg/dL (6-20); Calcium 9.3 mg/dL (8.6-10.4); Carbon Dioxide 18 mmol/L (22-30); Chloride 98 mmol/L (96-108); Globulin 2.8 gm/dL (2.2-3.7); Glomerular Filtration Rate 65; Glucose 365 mg/dL (70-105)
[2023-06-05] MEDS ORDERED: POTASSIUM CHLORIDE 20 MEQ in DEXTROSE 5% IN WATER 250 ML IV ONE (16:48)
[2023-06-05] MEDS ORDERED: INSULIN REGULAR, HUMAN 1 UNIT/0.01 ML UNIT IV ONE ×2 (16:50→19:04)
[2023-06-05] MEDS ORDERED: NACL 0.9% W/KCL 20MEQ 1,000 ML IV SCH (17:00)
[2023-06-05] MEDS ORDERED: SODIUM CHLORIDE 0.9% IV SCH (17:15)
[2023-06-05] MEDS ORDERED: HUMAN IV SCH (17:15)
[2023-06-05] MEDS ORDERED: INSULIN REGULAR IV SCH (17:15)
[2023-06-05] MEDS ORDERED: INSULIN REGULAR, HUMAN 50 UNIT in 0.9 % SODIUM CHLORIDE 99.5 ML IV SCH ×3 (18:00→21:30)
[2023-06-05] MEDS ORDERED: INSULIN REGULAR, HUMAN 1 UNIT/0.01 ML UNIT ONE (18:11)
[2023-06-05] MEDS ORDERED: LORazepam 2 MG/ML VIAL IV PRN (19:04)
[2023-06-05] MEDS ORDERED: IPRATROPIUM/ALBUTEROL 3 ML AMPUL.NEB NEB PRN (19:04)
[2023-06-05] MEDS ORDERED: ONDANSETRON 4 MG/2 ML VIAL IV PRN (19:04)
[2023-06-05] MEDS ORDERED: DEXTROSE 50% 50 ML SYRINGE IV ONE (19:04)
[2023-06-05] MEDS: DEXTROSE 5%-1/2NS W/20MEQ KCL 1,000 ML IV SCH (19:18)
[2023-06-05] MEDS: INSULIN REGULAR, HUMAN 50 UNIT in 0.9 % SODIUM CHLORIDE 99.5 ML IV SCH ×2 (19:21→21:23)
[2023-06-05 19:36] LABS: ABG Methemoglobin 0.3 % (0.4-1.5); Total Hemoglobin 12.7 gm/Dl (12.0-15.0); VBG Base Excess -4 (-2-3); VBG HCO3 21.6 mmol/L (24.0-28.0); VBG Oxygen Saturation 68.4 % (40.0-70.0); VBG PCO2 39.1 mmHg (41.0-51.0); VBG PH 7.36 U (7.32-7.42); VBG Total CO2 22.8 mmol/L (25.0-29.0)
[2023-06-05 19:43] LABS: Blood Urea Nitrogen 10 mg/dL (6-20); Calcium 8.5 mg/dL (8.6-10.4); Carbon Dioxide 20 mmol/L (22-30); Chloride 104 mmol/L (96-108); Glomerular Filtration Rate 85; Glucose 222 mg/dL (70-105)
[2023-06-05] MEDS: METOCLOPRAMIDE 10 MG/2 ML VIAL IV SCH (19:57)
[2023-06-05 20:17] LABS: Estimated Average Glucose(eAG) 263 mg/dL; Hemoglobin A1C 10.8 % Hgb (4.0-6.0)
[2023-06-05] MEDS ORDERED: NON FORMULARY MEDICATION 1 DOSE MISCELL PO SCH ×2 (22:04)
[2023-06-05] MEDS: 0.9 % SODIUM CHLORIDE 10 ML SYRINGE IV SCH (22:10)
[2023-06-06] MEDS: METOCLOPRAMIDE 10 MG/2 ML VIAL IV SCH ×2 (00:04→05:51)
[2023-06-06 01:25] LABS: ABG Methemoglobin 0.1 % (0.4-1.5); Total Hemoglobin 12.2 gm/Dl (12.0-15.0); VBG Base Excess 0 (-2-3); VBG HCO3 22.6 mmol/L (24.0-28.0); VBG Oxygen Saturation 94.5 % (40.0-70.0); VBG PCO2 32.1 mmHg (41.0-51.0); VBG PH 7.47 U (7.32-7.42); VBG PO2 113.6 mmHg (25.0-40.0); VBG Total CO2 23.6 mmol/L (25.0-29.0)
[2023-06-06 01:26] LABS: Blood Urea Nitrogen 8 mg/dL (6-20); Calcium 8.5 mg/dL (8.6-10.4); Carbon Dioxide 21 mmol/L (22-30); Chloride 108 mmol/L (96-108); Glomerular Filtration Rate 99; Glucose 86 mg/dL (70-105)
[2023-06-06] MEDS: DEXTROSE 5%-1/2NS W/20MEQ KCL 1,000 ML IV SCH (02:25)
[2023-06-06] MEDS ORDERED: INSULIN GLARGINE, HUMAN 1 UNIT/0.01 ML SQ ONE ×2 (02:28→02:34)
[2023-06-06 05:41] LABS: ABG Methemoglobin 0.1 % (0.4-1.5); Total Hemoglobin 12.3 gm/Dl (12.0-15.0); VBG Base Excess -5 (-2-3); VBG HCO3 19.3 mmol/L (24.0-28.0); VBG Oxygen Saturation 83.7 % (40.0-70.0); VBG PCO2 33.2 mmHg (41.0-51.0); VBG PH 7.38 U (7.32-7.42); VBG PO2 48.7 mmHg (25.0-40.0); VBG Total CO2 20.3 mmol/L (25.0-29.0)
[2023-06-06] MEDS: 0.9 % SODIUM CHLORIDE 10 ML SYRINGE IV SCH (05:52)
[2023-06-06 06:45] LABS: Basophils # (Auto) 0.02 K/mcL (0.00-0.30); Basophils % (Auto) 0.4 % (0.0-2.0); Eosinophils # (Auto) 0.15 K/mcL (0.00-0.70); Eosinophils % (Auto) 2.8 % (0.0-7.0); Hematocrit 33.3 % (34.1-44.9); Lymphocytes # (Auto) 2.81 K/mcL (1.50-4.80); Lymphocytes % (Auto) 52.3 % (15.5-49.0); Mean Cell Volume 93.5 fL (80.0-100.0); Mean Platelet Volume 9.9 fL (8.8-12.5); Monocytes % (Auto) 9.3 % (1.0-12.0); Neutrophils % (Auto) 35.2 % (38.0-78.0); Platelet Count 260 K/mcL (140-440); RBC 3.56 M/mcL (3.59-5.38); Red Cell Distribution Width 13.8 % (11.5-14.5); WBC 5.4 K/mcL (4.5-11.0)
[2023-06-06 07:18] LABS: Phosphorous 2.4 mg/dL (2.5-4.5)
[2023-06-06 07:25] LABS: Blood Urea Nitrogen 8 mg/dL (6-20); Calcium 8.1 mg/dL (8.6-10.4); Carbon Dioxide 18 mmol/L (22-30); Chloride 107 mmol/L (96-108); Glomerular Filtration Rate 85; Glucose 226 mg/dL (70-105)
[2023-06-06] MEDS ORDERED: PANTOPRAZOLE 40 MG TABLET PO SCH (07:30)
[2023-06-06] MEDS ORDERED: PANTOPRAZOLE 40 MG VIAL IV SCH (07:30)
[2023-06-06] MEDS ORDERED: INSULIN LISPRO 1 UNIT/0.01 ML UNIT SQ SCH (07:30)
[2023-06-06] MEDS ORDERED: LORazepam 0.5 MG TABLET PO PRN (08:54)
[2023-06-06] MEDS ORDERED: ENOXAPARIN 40 MG/0.4 ML SYRINGE SQ SCH (09:00)
[2023-06-06] MEDS ORDERED: LACOSAMIDE 50 MG PO SCH (09:00)
[2023-06-06] MEDS ORDERED: DICLOFENAC 75 MG TABLET PO SCH (09:00)
[2023-06-06] MEDS ORDERED: HYDROcodone/APAP 5/325MG TABLET PO PRN (09:00)
[2023-06-06] MEDS ORDERED: ALPRAZolam 0.5 MG TABLET PO PRN (09:01)
[2023-06-06] MEDS ORDERED: METHOCARBAMOL 500 MG TABLET PO SCH (21:00)
[2023-06-06] MEDS ORDERED: ZONISAMIDE 300 MG PO SCH ×2 (21:00)
[2023-06-06] MEDS ORDERED: NON FORMULARY MEDICATION 1 DOSE MISCELL PO SCH ×2 (21:00)
[2023-06-06] MEDS ORDERED: NORETHINDRONE PO SCH (21:00)
[2023-06-06] MEDS ORDERED: MIRTAZAPINE 15 MG TABLET PO SCH (21:00)
[2023-06-06] MEDS ORDERED: LACOSAMIDE PO SCH (21:00)
[2023-06-06] MEDS ORDERED: ESTRADIOL PO SCH (21:00)
== END 2023-06-06 10:07 | disposition home or self-care (01) | DRG 638 ==
LOC: ED 15:04 → ICU 19:00
PROVIDERS: ADMIT Internal Medicine; ATTEND Internal Medicine